=== PATIENT | female | born 1975 | race African-American/Black ===

== ENCOUNTER 2022-07-23 05:13 | Emergency (ER) | payer OTHER ==
[~2022-07-23] VITALS: Ht 154.9 cm; Wt 63.5 kg
--- NOTE | 2022-07-23 05:35 | NUR ---
NO BEDS AVAILABLE IN THE ER AT THIS TIME. PATIENT PLACED IN HALLWAY. DR RAMACHANDRAN INTO EVAL PATIENT.
[2022-07-23] MEDS ORDERED: ASPIRIN 81 MG TAB.CHEW PO ONE (05:45)
[2022-07-23] MEDS ORDERED: ASPIRIN 81 MG TAB.CHEW ONE (05:49)
[2022-07-23 06:06] LABS: MEAN CORPUSCULAR VOLUME 93.6 fL (75.5-95.3); PLATELET COUNT (AUTO) 265 K/uL (179-408)
[2022-07-23 06:10] LABS: CARBON DIOXIDE 31 mmol/L (21-32); CHLORIDE 101 mmol/L (98-107); GLUCOSE 92 mg/dL (74-106); POTASSIUM 3.5 mmol/L (3.5-5.1); UREA NITROGEN, BLOOD 10 mg/dL (7-18)
[2022-07-23 06:15] LABS: BILIRUBIN,DIRECT 0.1 mg/dL (0.0-0.2); BILIRUBIN,TOTAL 0.3 mg/dL (0.2-1.0)
--- NOTE | 2022-07-23 08:50 | NUR ---
IV removed. Catheter intact and site benign. Pressure and 4x4 gauze applied to site. No bleeding noted.
--- NOTE | 2022-07-23 08:51 | NUR ---
Patient discharged to home in stable condition. Written and verbal after care instructions given. Patient verbalizes understanding of instructions. Stressed follow up or return to ER for worsening s/s.
[2022-07-23 08:52] VITALS: BP 102/76
== END 2022-07-23 08:53 | disposition home or self-care (01) ==
LOC: ER 05:23
DX: R07.9 Chest pain, unspecified (principal); Z20.822 Contact with and (suspected) exposure to COVID-19; R94.31 Abnormal electrocardiogram [ECG] [EKG]
CPT/HCPCS: 36415; 71045; 84484; 85025; 93005; A4663

== ENCOUNTER 2025-01-09 10:35 | Emergency (ER) | payer OTHER ==
[~2025-01-09] VITALS: Ht 154.9 cm; Wt 62.6 kg
[2025-01-09 12:00] LABS: *BILIRUBIN,URIN NEGATIVE (NEGATIVE); *CLARITY,URINE CLEAR (CLEAR); *COLOR,URINE YELLOW (YELLOW); *KETONES,URINE NEGATIVE (NEGATIVE); *PROTEIN,URINE NEGATIVE (NEGATIVE); *UROBILINOGEN,URINE 0.2 E.U./dl (NORMAL); LEUKOCYTE ESTERASE ,URINE NEGATIVE (NEGATIVE); NITRITE, URINE NEGATIVE (NEGATIVE); PH,URINE 5.5 (5.0-8.0); UGLUCOSE NEGATIVE (NEGATIVE)
[2025-01-09] MEDS ORDERED: [UNRECOGNIZED DRUG - OTHER] (12:02)
[2025-01-09] MEDS ORDERED: ASCO500C18 (12:02)
[2025-01-09] MEDS ORDERED: CHOL100043 (12:02)
[2025-01-09] MEDS ORDERED: VITA1CAP (12:02)
[2025-01-09] MEDS ORDERED: [UNRECOGNIZED DRUG - OTHER] (12:02)
[2025-01-09] MEDS ORDERED: MECLIZINE HCL 25 MG TABLET ONE (12:06)
[2025-01-09] MEDS ORDERED: ONDANSETRON 4 MG/2 ML VIAL ONE (12:07)
[2025-01-09] MEDS: ONDANSETRON 4 MG/2 ML VIAL IV ONE (12:09)
[2025-01-09] MEDS: MECLIZINE HCL 25 MG TABLET PO ONE (12:10)
[2025-01-09] MEDS: IV NORMAL SALINE 1000 ML BAG IV ONE (12:10)
[2025-01-09 12:12] LABS: *BLOOD, URINE TRACE (NEGATIVE)
[2025-01-09 12:13] LABS: BASOPHILS % (AUTO) 0.6 % (0.0-2.0); EOSINOPHILS % (AUTO) 0.3 % (0.0-7.0); HEMATOCRIT 41.5 % (31.2-41.9); LYMPHOCYTES # (AUTO) 1.7 K/uL (0.8-4.8); LYMPHOCYTES % (AUTO) 21.7 % (20.5-51.5); MEAN CORPUSCULAR HGB CONC 34 g/dL (32.3-35.6); MONOCYTES # (AUTO) 0.5 K/uL (0.1-1.30); MONOCYTES % (AUTO) 6.6 % (0.0-11.0); NEUTROPHILS # (AUTO) 5.5 K/uL (1.8-8.9); NEUTROPHILS % (AUTO) 70.8 % (38.5-71.5); PLATELET COUNT (AUTO) 275 K/uL (179-408); RED BLOOD CELL COUNT(AUTO) 4.37 MIL/uL (3.63-4.92); RED CELL DISTRIBUTION WIDTH 13.2 % (12.3-17.7); WHITE BLOOD COUNT (AUTO) 7.7 K/uL (3.8-11.8)
[2025-01-09 12:22] LABS: DIFFERENTIAL COMMENT 1
[2025-01-09 12:42] LABS: CALCIUM 9.5 mg/dL (8.5-10.1); CARBON DIOXIDE 26 mmol/L (21-32); CHLORIDE 106 mmol/L (98-107); CREATININE 0.8 mg/dL (0.6-1.3); GLUCOSE 98 mg/dL (74-106); SODIUM SERUM 143 mmol/L (136-145); UREA NITROGEN, BLOOD 12 mg/dL (7-18)
[2025-01-09 12:48] LABS: *URINE HCG, QUAL NEGATIVE (NEGATIVE)
[2025-01-09] MEDS ORDERED: MECL-159 PO (12:52)
[2025-01-09] MEDS ORDERED: ONDA4TAB5 PO (12:52)
[2025-01-09 13:26] LABS: BACTERIA,URINE FEW /HPF (NONE SEEN); RBC,URINE 0-3 /HPF (0-3); SQUAMOUS EPITHELIAL CELL,UR FEW /HPF (NONE SEEN); WBC,URINE 0-3 /HPF (0-3)
[2025-01-09 13:33] VITALS: BP 126/88; TEMP 97.7; O2SAT 98
== END 2025-01-09 13:35 | disposition home or self-care (01) ==
LOC: ER 10:35
DX: R42 Dizziness and giddiness (principal); R11.0 Nausea; R51.9 Headache, unspecified; Z86.73 Personal history of transient ischemic attack (TIA), and cerebral infarction without residual deficits
CPT/HCPCS: 99285; 96374; 71045; 96361; 80048; 81001; 82962; 84703; 84443; 85025; 84484; 36415; 93005; J2405; J7040; A4606; A4663; J8597